=== PATIENT | female | born 1985 | race American Indian/Alaskan Native ===

== ENCOUNTER 2019-01-20 06:36 | Emergency (ER) | payer SELFPAY ==
[2019-01-20 08:04] LABS: Bacteria,Urine 1+ /HPF (Negative); Bilirubin,Urine NEG (Negative); Blood,Urine NEG (Negative); Color,Urine Yellow (Yellow); Mucus,Urine FEW /HPF; Protein,Urine <15 mg/dL mg/dL (Negative); Urobilinogen,Urine < 2.0 mg/dL (<2.0)
[2019-01-20 08:05] LABS: HCG Qualitative,Urine Negative (Negative)
[2019-01-20] MEDS ORDERED: SODIUM CHLORIDE 0.9% 1000 ML 1,000 ML IV ONE (09:21)
[2019-01-20] MEDS ORDERED: ONDANSETRON 4 MG/2 ML INJ IV ONE (09:21)
[2019-01-20] MEDS ORDERED: MORPHINE 4 MG/1 ML INJ IV ONE (09:21)
--- NOTE | 2019-01-20 09:23 | Emergency Department Report ---
ED Abdominal Pain HPI - General Chief Complaint: Abdominal Pain Stated Complaint: ABD PAIN Time Seen by Provider: 01/20/19 08:51 Source: patient Mode of arrival: Ambulatory Limitations: No Limitations - History of Present Illness Initial Comments: 3-year-old -Spanish female patient without significant past medical history complaints of lower right abdominal pain for the past 2 days. She admits to nausea and vomiting and urinary frequency. She denies any fever or chills, dysuria, vaginal discharge, constipation/diarrhea/hematochezia/melena/ hematemesis/coffee ground emesis. She states the pain as radiating up to her right flank area. She does admit to mild vaginal spotting, however states she has not had a normal cycle since her ParaGard was removed earlier this year. - Related Data Previous Rx's Medication Instructions Recorded Last Taken Type Acetaminophen/Codeine [Tylenol 1 tab PO Q6H PRN #10 tab 01/20/19 Unknown Rx /Codeine # 3 tab] Ciprofloxacin HCl [Ciprofloxacin 500 mg PO Q12HR 5 Days #10 tab 01/20/19 Unknown Rx TAB] Ibuprofen [Motrin 800 MG tab] 800 mg PO Q8HR PRN #21 tablet 01/20/19 Unknown Rx Promethazine HCl [Promethazine TAB] 12.5 mg PO Q6H PRN #15 tab 01/20/19 Unknown Rx Allergies Allergy/AdvReac Type Severity Reaction Status Date / Time No Known Allergies Allergy Unverified 01/20/19 06:45 ED Review of Systems ROS: Stated complaint: ABD PAIN Other details as noted in HPI ED Past Medical Hx - Past Medical History Previous Medical History?: No - Surgical History Past Surgical History?: No - Social History Smoking Status: Former Smoker Substance Use Type: Alcohol, Marijuana - Medications Home Medications: Home Medications Medication Instructions Recorded Confirmed Last Taken Type Acetaminophen/Codeine [Tylenol 1 tab PO Q6H PRN #10 tab 01/20/19 Unknown Rx /Codeine # 3 tab] Ciprofloxacin HCl [Ciprofloxacin 500 mg PO Q12HR 5 Days #10 tab 01/20/19 Unknown Rx TAB] Ibuprofen [Motrin 800 MG tab] 800 mg PO Q8HR PRN #21 tablet 01/20/19 Unknown Rx Promethazine HCl [Promethazine TAB] 12.5 mg PO Q6H PRN #15 tab 01/20/19 Unknown Rx ED Physical Exam - General Limitations: No Limitations General appearance: alert, in no apparent distress - Head Head exam: Present: atraumatic, normocephalic - Eye Eye exam: Present: normal appearance. Absent: scleral icterus - ENT ENT exam: Present: normal exam - Neck Neck exam: Present: full ROM - Respiratory Respiratory exam: Present: normal lung sounds bilaterally. Absent: respiratory distress - Cardiovascular Cardiovascular Exam: Present: regular rate, normal rhythm. Absent: systolic murmur, diastolic murmur, rubs, gallop - GI/Abdominal GI/Abdominal exam: Present: soft, tenderness, normal bowel sounds. Absent: distended, guarding, rebound - Extremities Exam Extremities exam: Present: full ROM. Absent: pedal edema - Back Exam Back exam: Present: CVA tenderness (R). Absent: CVA tenderness (L) - Neurological Exam Neurological exam: Present: alert, oriented X3 - Psychiatric Psychiatric exam: Present: normal affect, normal mood - Skin Skin exam: Present: warm, dry, intact, normal color. Absent: rash ED Course Vital Signs 01/20/19 01/20/19 06:43 10:44 Temperature 97.7 F Pulse Rate 49 L 62 Respiratory 12 16 Rate Blood Pressure 190/96 Blood Pressure 140/85 [Left] O2 Sat by Pulse 100 100 Oximetry ED Medical Decision Making - Lab Data Result diagrams: 01/20/19 09:47 01/20/19 09:47 Lab Results 01/20/19 01/20/19 01/20/19 Range/Units 07:37 09:47 09:47 WBC 4.3 L (4.5-11.0) K/mm3 RBC 4.87 (3.65-5.03) M/mm3 Hgb 13.4 (10.1-14.3) gm/dl Hct 41.5 (30.3-42.9) % MCV 85 (79-97) fl MCH 28 (28-32) pg MCHC 32 (30-34) % RDW 16.2 H (13.2-15.2) % Plt Count 184 (140-440) K/mm3 Sodium 139 (137-145) mmol/L Potassium 3.7 (3.6-5.0) mmol/L Chloride 106.7 (98-107) mmol/L Carbon Dioxide 19 L (22-30) mmol/L Anion Gap 17 mmol/L BUN 8 (7-17) mg/dL Creatinine 0.8 (0.7-1.2) mg/dL Estimated GFR > 60 ml/min BUN/Creatinine Ratio 10 % Glucose 87 (65-100) mg/dL Calcium 9.7 (8.4-10.2) mg/dL Total Bilirubin 0.50 (0.1-1.2) mg/dL Direct Bilirubin < 0.2 (0-0.2) mg/dL Indirect Bilirubin 0.3 mg/dL AST 32 (5-40) units/L ALT 23 (7-56) units/L Alkaline Phosphatase 78 (35-129) units/L Total Protein 7.9 (6.3-8.2) g/dL Albumin 4.6 (3.9-5) g/dL Albumin/Globulin Ratio 1.4 % Lipase (13-60) units/L Urine Color Yellow (Yellow) Urine Turbidity Clear (Clear) Urine pH 5.0 (5.0-7.0) Ur Specific [place] 1.021 (1.003-1.030) Urine Protein <15 mg/dl (Negative) mg/dL Urine Glucose (UA) Neg (Negative) mg/dL Urine Ketones Tr (Negative) mg/dL Urine Blood Neg (Negative) Urine Nitrite Neg (Negative) Urine Bilirubin Neg (Negative) Urine Urobilinogen < 2.0 (<2.0) mg/dL Ur Leukocyte Esterase Sm (Negative) Urine WBC (Auto) 9.0 H (0.0-6.0) /HPF Urine RBC (Auto) 4.0 (0.0-6.0) /HPF U Epithel Cells (Auto) 3.0 (0-13.0) /HPF Urine Bacteria (Auto) 1+ (Negative) /HPF Urine Mucus Few /HPF Urine HCG, Qual Negative (Negative) 01/20/19 Range/Units 09:47 WBC (4.5-11.0) K/mm3 RBC (3.65-5.03) M/mm3 Hgb (10.1-14.3) gm/dl Hct (30.3-42.9) % MCV (79-97) fl MCH (28-32) pg MCHC (30-34) % RDW (13.2-15.2) % Plt Count (140-440) K/mm3 Sodium (137-145) mmol/L Potassium (3.6-5.0) mmol/L Chloride (98-107) mmol/L Carbon Dioxide (22-30) mmol/L Anion Gap mmol/L BUN (7-17) mg/dL Creatinine (0.7-1.2) mg/dL Estimated GFR ml/min BUN/Creatinine Ratio % Glucose (65-100) mg/dL Calcium (8.4-10.2) mg/dL Total Bilirubin (0.1-1.2) mg/dL Direct Bilirubin (0-0.2) mg/dL Indirect Bilirubin mg/dL AST (5-40) units/L ALT (7-56) units/L Alkaline Phosphatase (35-129) units/L Total Protein (6.3-8.2) g/dL Albumin (3.9-5) g/dL Albumin/Globulin Ratio % Lipase 35 (13-60) units/L Urine Color (Yellow) Urine Turbidity (Clear) Urine pH (5.0-7.0) Ur Specific [place] (1.003-1.030) Urine Protein (Negative) mg/dL Urine Glucose (UA) (Negative) mg/dL Urine Ketones (Negative) mg/dL Urine Blood (Negative) Urine Nitrite (Negative) Urine Bilirubin (Negative) Urine Urobilinogen (<2.0) mg/dL Ur Leukocyte Esterase (Negative) Urine WBC (Auto) (0.0-6.0) /HPF Urine RBC (Auto) (0.0-6.0) /HPF U Epithel Cells (Auto) (0-13.0) /HPF Urine Bacteria (Auto) (Negative) /HPF Urine Mucus /HPF Urine HCG, Qual (Negative) - Radiology Data Radiology results: report reviewed CT ABDOMEN AND PELVIS WITH CONTRAST HISTORY: Right lower quadrant pain and right flank pain for 2 days COMPARISON: None. TECHNIQUE: Axial CT images were obtained through the abdomen and pelvis after 100 cc of Omnipaque 300 intravenously. Sagittal and coronal reformatted images. All CT scans at this location are performed using CT dose reduction for ALARA by means of automated exposure control. FINDINGS: CT ABDOMEN: Lung Bases: Clear. Liver: No significant abnormality. Biliary: No significant abnormality. Spleen: No significant abnormality. Unenlarged. Pancreas: No significant abnormality. Adrenals: No significant abnormality. Kidneys: No significant abnormality. Lymphatics: No lymphadenopathy. Vasculature: No significant abnormality. Bowel/Peritoneum: No significant abnormality. No free air. No free fluid. Normal appendix. CT PELVIS: : The uterus is anteverted. No uterine fibroid disease. The endometrial canal is markedly thickened measuring up to 3.7 cm. There is a relatively linear metallic density in the lower endometrial canal measuring 1-2 cm which is of uncertain significance. Please correlate with the patient's procedural history. This may represent an Essure device. There are bilateral ovarian cysts. A left ovarian cyst measures 2.2 cm. There are multiple right ovarian cysts with the largest measuring 3.8 cm Osseous Structures: No significant abnormality. Additional Findings: None IMPRESSION: Abnormal endometrium as outlined above. It is unclear if this represents diffuse endometrial thickening or large amount of fluid in the endometrial canal. There is an abnor mal metallic density in the lower endometrial canal which may represent a foreign body. Please corre late with the patient's clinical history. Bilateral ovarian cysts, right greater than left - Medical Decision Making Patient presents for right lower abdominal pain radiating to the right flank for the past 2 days. Vitals are WNL. WBCs are normal. CT abdomen with contrast shows ovarian cysts and a linear metallic density in the uteruspatient states when she had her ParaGard removed earlier this year the device broke off and she was supposed to follow up for surgery and has not. UA shows infection. Differential diagnosis includes complicated UTI, and from ovarian cysts, and pain from ParaGard device. Pain is controlled. Vitals remain stable. We'll treat for complicated UTI and recommend CASH REGISTER MECHANIC follow-up. Discussed strict return precautions in great detail with patient who states understanding. Critical care attestation.: If time is entered above; I have spent that time in minutes in the direct care of this critically ill patient, excluding procedure time. ED Disposition Clinical Impression: Complicated UTI (urinary tract infection) Disposition: DC-01 TO HOME OR SELFCARE Is pt being admited?: No Condition: Stable Instructions: Acute Pyelonephritis (ED) Additional Instructions: Please follow-up with your CASH REGISTER MECHANIC within the next 2-3 days. Prescriptions: Ciprofloxacin HCl [Ciprofloxacin TAB] 500 mg PO Q12HR 5 Days #10 tab Ibuprofen [Motrin 800 MG tab] 800 mg PO Q8HR PRN #21 tablet PRN Reason: Pain , Severe (7-10) Promethazine HCl [Promethazine TAB] 12.5 mg PO Q6H PRN #15 tab PRN Reason: Nausea Acetaminophen/Codeine [Tylenol /Codeine # 3 tab] 1 tab PO Q6H PRN #10 tab PRN Reason: Pain , Severe (7-10) Referrals: PRIMARY CARE,MD [Primary Care Provider] - 3-5 Days
[2019-01-20 10:22] LABS: Hematocrit 41.5 % (30.3-42.9); Hemoglobin 13.4 gm/dl (10.1-14.3); Mean Corpuscular HGB Conc 32 % (30-34); Mean Corpuscular Volume 85 fl (79-97); Platelet Count 184 K/mm3 (140-440); Red Blood Count 4.87 M/mm3 (3.65-5.03); Red Cell Distribution Width 16.2 % (13.2-15.2)
[2019-01-20 10:33] LABS: Alanine Aminotransferase 23 units/L (7-56); Albumin 4.6 g/dL (3.9-5); BUN/Creatinine Ratio 10; Blood Urea Nitrogen 8 mg/dL (7-17); Calcium 9.7 mg/dL (8.4-10.2); Hemolysis Index 6
[2019-01-20 10:34] LABS: Bilirubin,Direct < 0.2 mg/dL (0-0.2)
--- NOTE | 2019-01-20 12:42 | Cat Scan Report ---
CT ABDOMEN AND PELVIS WITH CONTRAST HISTORY: Right lower quadrant pain and right flank pain for 2 days COMPARISON: None. TECHNIQUE: Axial CT images were obtained through the abdomen and pelvis after 100 cc of Omnipaque 300 intravenously. Sagittal and coronal reformatted images. All CT scans at this location are performed using CT dose reduction for ALARA by means of automated exposure control. FINDINGS: CT ABDOMEN: Lung Bases: Clear. Liver: No significant abnormality. Biliary: No significant abnormality. Spleen: No significant abnormality. Unenlarged. Pancreas: No significant abnormality. Adrenals: No significant abnormality. Kidneys: No significant abnormality. Lymphatics: No lymphadenopathy. Vasculature: No significant abnormality. Bowel/Peritoneum: No significant abnormality. No free air. No free fluid. Normal appendix. CT PELVIS: : The uterus is anteverted. No uterine fibroid disease. The endometrial canal is markedly thickened measuring up to 3.7 cm. There is a relatively linear metallic density in the lower endometrial canal measuring 1-2 cm which is of uncertain significance. Please correlate with the patient's procedural history. This may represent an Essure device. There are bilateral ovarian cysts. A left ovarian cyst measures 2.2 cm. There are multiple right ovarian cysts with the largest measuring 3.8 cm Osseous Structures: No significant abnormality. Additional Findings: None IMPRESSION: Abnormal endometrium as outlined above. It is unclear if this represents diffuse endometrial thickeni ng or large amount of fluid in the endometrial canal. There is an abnormal metallic density in the lo wer endometrial canal which may represent a foreign body. Please correlate with the patient's clinica l history. Bilateral ovarian cysts, right greater than left Signer Name: Jeremy Allan Jr, MD Signed: 01/20/2019 12:38 PM Workstation Name: [id number]
[2019-01-20] MEDS ORDERED: ONDANSETRON 4 MG ODT TAB PO ONE (12:50)
[2019-01-20] MEDS ORDERED: KETOROLAC 30 MG/1 ML INJ IV ONE (12:50)
[2019-01-20] MEDS ORDERED: cefTRIAXone/NS 1 GM/50 ML 1 GM/50 ML BAG IV SCH (13:00)
[2019-01-20 14:21] VITALS: BP 145/90
== END 2019-01-20 14:29 | disposition home or self-care (01) ==
LOC: ED 06:36
DX: N39.0 Urinary tract infection, site not specified (principal); F12.10 Cannabis abuse, uncomplicated; Z87.891 Personal history of nicotine dependence
CPT/HCPCS: 36415; 74177; 80048; 80076; 81001; 81025; 83690; 85027; 87086; 96361; 96365; 96375; 99284; J0696; J1885; J2270; J2405; J7030; Q9967; Q0162

== ENCOUNTER 2019-02-23 10:27 | Observation (INO) | payer SELFPAY ==
[2019-02-23 11:14] LABS: Basophils % (Auto) 0.7 % (0.0-1.8); Eosinophils % (Auto) 0.7 % (0.0-4.3); Hematocrit 36.7 % (30.3-42.9); Hemoglobin 12.1 gm/dl (10.1-14.3); Lymphocytes # (Auto) 1.5 K/mm3 (1.2-5.4); Lymphocytes % (Auto) 21.4 % (13.4-35.0); Mean Corpuscular HGB Conc 33 % (30-34); Mean Corpuscular Volume 85 fl (79-97); Monocytes # (Auto) 0.6 K/mm3 (0.0-0.8); Monocytes % (Auto) 8.2 % (0.0-7.3); Platelet Count 195 K/mm3 (140-440); Red Blood Count 4.34 M/mm3 (3.65-5.03); Red Cell Distribution Width 15.6 % (13.2-15.2)
[2019-02-23] MEDS ORDERED: ONDANSETRON 4 MG/2 ML INJ IV ONE (11:24)
[2019-02-23] MEDS ORDERED: MORPHINE 4 MG/1 ML INJ IV ONE (11:24)
[2019-02-23] MEDS ORDERED: SODIUM CHLORIDE 0.9% 1000 ML 1,000 ML IV ONE (11:24)
[2019-02-23] MEDS ORDERED: KETOROLAC 30 MG/1 ML INJ IV ONE (11:24)
[2019-02-23] MEDS ORDERED: MORPHINE 2 MG/1 ML INJ ONE (11:34)
[2019-02-23] MEDS ORDERED: ONDANSETRON 4 MG/2 ML INJ IV PRN (14:10)
[2019-02-23] MEDS ORDERED: fentaNYL 100 MCG/2 ML INJ IV PRN (14:10)
--- NOTE | 2019-02-23 14:11 | Anesthesia Day of Surgery ---
Anesthesia Day of Surgery - Day of Surgery Patient Examined: Yes Patient H&P Reviewed: Yes Patient is NPO: Yes
--- NOTE | 2019-02-23 14:11 | Ultrasound Report ---
ULTRASOUND PELVIS COMPLETE ULTRASOUND TRANSVAGINAL INDICATION / CLINICAL INFORMATION: pelvic pain hematometria. TECHNIQUE: Transabdominal and Transvaginal. Duplex Color Doppler used: Yes. COMPARISON: CT abdomen pelvis with contrast dated 01/20/2019 FINDINGS: UTERUS: The uterus is anteverted. The uterus is enlarged measuring 13.2 x 7.7 x 7.2 cm. No uterine fi broids are identified. The endometrial stripe is markedly thickened and complex measuring up to 3 cm on transvaginal imaging. The endometrium in the uterine fundus region demonstrates normal echotexture also it is markedly thickened. The lower endometrium is particularly complex with multiple fine inte rnal septa. The endometrium appears avascular on Doppler interrogation. The etiology of this is uncle ar. RIGHT ADNEXA: The right ovary measures 3.9 x 1.4 x 1.9 cm. There is a large complex cyst containing d ebris measuring 6.4 cm adjacent to the right ovary. This may represent an exophytic hemorrhagic cyst. LEFT ADNEXA: The left ovary is unremarkable measuring 3.6 x 1.7 x 2.9 cm. URINARY BLADDER: No significant abnormality. FREE FLUID: None. ADDITIONAL FINDINGS: None. IMPRESSION: Abnormal endometrium of uncertain etiology. Uterine synechia Consultation with WIRELESS ARCHITECT is recommended . 6.4 cm complex right adnexal cyst. Signer Name: Jeremy Allan Jr, MD Signed: 02/23/2019 2:07 PM Workstation Name: [id number]
--- NOTE | 2019-02-23 14:12 | Ultrasound Report ---
ULTRASOUND PELVIS COMPLETE ULTRASOUND TRANSVAGINAL INDICATION / CLINICAL INFORMATION: pelvic pain hematometria. TECHNIQUE: Transabdominal and Transvaginal. Duplex Color Doppler used: Yes. COMPARISON: CT abdomen pelvis with contrast dated 01/20/2019 FINDINGS: UTERUS: The uterus is anteverted. The uterus is enlarged measuring 13.2 x 7.7 x 7.2 cm. No uterine fi broids are identified. The endometrial stripe is markedly thickened and complex measuring up to 3 cm on transvaginal imaging. The endometrium in the uterine fundus region demonstrates normal echotexture also it is markedly thickened. The lower endometrium is particularly complex with multiple fine inte rnal septa. The endometrium appears avascular on Doppler interrogation. The etiology of this is uncle ar. RIGHT ADNEXA: The right ovary measures 3.9 x 1.4 x 1.9 cm. There is a large complex cyst containing d ebris measuring 6.4 cm adjacent to the right ovary. This may represent an exophytic hemorrhagic cyst. LEFT ADNEXA: The left ovary is unremarkable measuring 3.6 x 1.7 x 2.9 cm. URINARY BLADDER: No significant abnormality. FREE FLUID: None. ADDITIONAL FINDINGS: None. IMPRESSION: Abnormal endometrium of uncertain etiology. Uterine synechia Consultation with WORLD TRAVEL COUNSELOR is recommended . 6.4 cm complex right adnexal cyst. Signer Name: Jeremy Allan Jr, MD Signed: 02/23/2019 2:07 PM Workstation Name: [id number]
--- NOTE | 2019-02-23 14:17 | Anesthesia Consultation ---
Anesthesia Consult and Med Hx Date of service: 02/23/19 - Airway Anesthetic Teeth Evaluation: Good ROM Head & Neck: Adequate Mental/Hyoid Distance: Adequate Mallampati Class: Class I Intubation Access Assessment: Good - Pre-Operative Health Status ASA Pre-Surgery Classification: ASA1, Emergency Proposed Anesthetic Plan: General - Hematic Hx Sickle Cell Disease: No
--- NOTE | 2019-02-23 14:21 | Emergency Department Report ---
ED General Adult HPI - General Chief complaint: Vaginal Bleeding Stated complaint: VAGINAL BLEEDING Time Seen by Provider: 02/23/19 10:44 Source: patient Mode of arrival: Ambulatory Limitations: No Limitations - History of Present Illness Initial comments: Family entire history and physical examination, I am substation manager and escorted by nurse Nathan Cha The patient follows with apparel designer, Dr. Zaragoza. She was diagnosed with a large 7 cm hematometria yesterday in Dr. Zaragoza's office via ultrasound. Apparently, patient had an IUD that was taken out, last year by another apparel designer, and one of the wings of the IUD was reportedly retained within the patient's cervix. Subsequently, she is not really had any significant menstruation for the past 11 months. She's had chronic lower abdominal pain, which got worse yesterday. She then states that she had a large gush of blood this morning, and has used 10 tampons/pads today. She reports that she feels no fevers, positive nausea, no urinary symptoms. There is no chest pain, no shortness of breath, no upper abdominal pain. Symptoms constant, do not radiate anywhere, worse with palpation, edita down, and decreased with rest and pain medication. -: Gradual Location: abdomen Radiation: non-radiation Severity scale (0 -10): 10 Quality: constant Consistency: other Improves with: other Worsens with: other Associated Symptoms: other - Related Data Previous Rx's Medication Instructions Recorded Last Taken Type Acetaminophen/Codeine [Tylenol 1 tab PO Q6H PRN #10 tab 01/20/19 Unknown Rx /Codeine # 3 tab] Ciprofloxacin HCl [Ciprofloxacin 500 mg PO Q12HR 5 Days #10 tab 01/20/19 Unknown Rx TAB] Ibuprofen [Motrin 800 MG tab] 800 mg PO Q8HR PRN #21 tablet 01/20/19 Unknown Rx Promethazine HCl [Promethazine TAB] 12.5 mg PO Q6H PRN #15 tab 01/20/19 Unknown Rx Allergies Allergy/AdvReac Type Severity Reaction Status Date / Time No Known Allergies Allergy Verified 02/23/19 10:27 ED Review of Systems ROS: Stated complaint: VAGINAL BLEEDING Other details as noted in HPI Constitutional: malaise Eyes: denies: eye discharge ENT: denies: congestion Cardiovascular: denies: syncope Gastrointestinal: abdominal pain Genitourinary: abnormal menses Musculoskeletal: denies: myalgia Neurological: weakness Psychiatric: anxiety ED Past Medical Hx - Past Medical History Previous Medical History?: No - Surgical History Past Surgical History?: No - Social History Smoking Status: Current Every Day Smoker Substance Use Type: None - Medications Home Medications: Home Medications Medication Instructions Recorded Confirmed Last Taken Type Acetaminophen/Codeine [Tylenol 1 tab PO Q6H PRN #10 tab 01/20/19 Unknown Rx /Codeine # 3 tab] Ciprofloxacin HCl [Ciprofloxacin 500 mg PO Q12HR 5 Days #10 tab 01/20/19 Unknown Rx TAB] Ibuprofen [Motrin 800 MG tab] 800 mg PO Q8HR PRN #21 tablet 01/20/19 Unknown Rx Promethazine HCl [Promethazine TAB] 12.5 mg PO Q6H PRN #15 tab 01/20/19 Unknown Rx ED Physical Exam - General Limitations: No Limitations General appearance: alert, anxious, in distress - Head Head exam: Present: atraumatic, normocephalic - Eye Eye exam: Present: normal appearance, EOMI. Absent: nystagmus - ENT ENT exam: Present: normal exam, normal orophraynx, mucous membranes moist, normal external ear exam - Neck Neck exam: Present: normal inspection, full ROM. Absent: tenderness, meningismus - Respiratory Respiratory exam: Present: normal lung sounds bilaterally. Absent: respiratory distress - Cardiovascular Cardiovascular Exam: Present: regular rate, normal rhythm, normal heart sounds. Absent: bradycardia, tachycardia, irregular rhythm, systolic murmur, diastolic murmur, rubs, gallop - GI/Abdominal GI/Abdominal exam: Present: soft. Absent: distended, tenderness, guarding, rebound, rigid, pulsatile mass - External exam: Present: normal external exam, bleeding. Absent: lesions, lacerations Speculum exam: Present: other (chaperoned by nurse Nathan Cha). Absent: cervical discharge - Extremities Exam Extremities exam: Present: normal inspection, full ROM, other (2+ pulses noted in the bilateral upper and lower extremities. There is no palpable cord. negative Homans sign. Muscular compartments are soft. The pelvis is stable.). Absent: pedal edema, joint swelling, calf tenderness - Back Exam Back exam: Present: normal inspection, full ROM. Absent: tenderness, CVA tenderness (R), CVA tenderness (L), paraspinal tenderness, vertebral tenderness - Neurological Exam Neurological exam: Present: alert, normal gait, other (there is no facial droop. The tongue is midline. The extraocular movements are intact bilaterally. Speaking in full sentences. Minimal elevation of the base of the tongue. There is 5 out of 5 strength in the bilateral upper and lower extremities, and sensa tion is intact to light touch in the bilateral upper and lower extremities. Appropriate insight.). Absent: motor sensory deficit - Psychiatric Psychiatric exam: Present: anxious - Skin Skin exam: Present: warm, dry, intact, normal color. Absent: rash ED Course Vital Signs 02/23/19 02/23/19 10:34 11:41 Temperature 98.3 F Pulse Rate 71 Respiratory 18 16 Rate Blood Pressure 167/108 O2 Sat by Pulse 100 Oximetry ED Medical Decision Making - Lab Data Result diagrams: 02/23/19 10:43 Vital Signs 02/23/19 02/23/19 10:34 11:41 Temperature 98.3 F Pulse Rate 71 Respiratory 18 16 Rate Blood Pressure 167/108 O2 Sat by Pulse 100 Oximetry Lab Results 02/23/19 02/23/19 02/23/19 Range/Units 10:43 10:43 11:40 WBC 6.8 (4.5-11.0) K/mm3 RBC 4.34 (3.65-5.03) M/mm3 Hgb 12.1 (10.1-14.3) gm/dl Hct 36.7 (30.3-42.9) % MCV 85 (79-97) fl MCH 28 (28-32) pg MCHC 33 (30-34) % RDW 15.6 H (13.2-15.2) % Plt Count 195 (140-440) K/mm3 Lymph % (Auto) 21.4 (13.4-35.0) % [place] % (Auto) 8.2 H (0.0-7.3) % Eos % (Auto) 0.7 (0.0-4.3) % Baso % (Auto) 0.7 (0.0-1.8) % Lymph # 1.5 (1.2-5.4) K/mm3 [place] # 0.6 (0.0-0.8) K/mm3 Eos # 0.0 (0.0-0.4) K/mm3 Baso # 0.0 (0.0-0.1) K/mm3 Seg Neutrophils % 69.0 (40.0-70.0) % Seg Neutrophils # 4.7 (1.8-7.7) K/mm3 HCG, Qual Negative (Negative) Blood Type B POSITIVE Antibody Screen Negative - Radiology Data Radiology results: report reviewed, image reviewed Print Report Referring Physician: SALEEM REAGAN Patient Name: MALACHI SMITH Date of : 1985 Sex: Female Report Date: 2019-02-23 Report Status: Finalized Findings [facility] [address] [place] [address] Ultrasound Report Signed Patient: MALACHI SMITH MR#: [id number] 150 : 1985 Acct:[id number] Age/Sex: 33 / F ADM Date: 02/23/19 Loc: ED Attending Dr: Ordering Physician: SALEEM REAGAN MD Date of Service: 02/23/19 Procedure(s): US transvaginal Accession Number(s): [id number] cc: SALEEM REAGAN MD ULTRASOUND PELVIS COMPLETE ULTRASOUND TRANSVAGINAL INDICATION / CLINICAL INFORMATION: pelvic pain hematometria. TECHNIQUE: Transabdominal and Transvaginal. Duplex Color Doppler used: Yes. COMPARISON: CT abdomen pelvis with contrast dated 01/20/2019 FINDINGS: UTERUS: The uterus is anteverted. The uterus is enlarged measuring 13.2 x 7.7 x 7.2 cm. No uterine fibroids are identified. The endometrial stripe is markedly thickened and complex measuring up to 3 cm on transvaginal imaging. The endometrium in the uterine fundus region demonstrates normal echotexture also it is markedly thickened. The lower endometrium is particularly complex with multiple fine internal septa. The endometrium appears avascular on Doppler interrogation. The etiology of this is unclear. RIGHT ADNEXA: The right ovary measures 3.9 x 1.4 x 1.9 cm. There is a large complex cyst containing debris measuring 6.4 cm adjacent to the right ovary. This may represent an exophytic hemorrhagic cyst. LEFT ADNEXA: The left ovary is unremarkable measuring 3.6 x 1.7 x 2.9 cm. URINARY BLADDER: No significant abnormality. FREE FLUID: None. ADDITIONAL FINDINGS: None. IMPRESSION: Abnormal endometrium of uncertain etiology. Uterine synechia Consultation with RETAIL INTERIOR DESIGNER is recommended. 6.4 cm complex right adnexal cyst. Signer Name: Jeremy Allan Jr, MD Signed: 02/23/2019 2:07 PM Workstation Name: [id number] Transcribed By: RUDI Dictated By: JEREMY ALLAN JR, MD Electronically Authenticated By: JEREMY ALLAN JR, MD Signed Date/Time: 02/23/19 1402 DD/ [id number] - Medical Decision Making Differential diagnosis, including but not limited to: hematometria Assessment and plan: 33-year-old female who presents with a large gush of blood from the cervix and vagina, likely secondary to hematometria, which is likely secondary to retained foreign body/wing from intrauterine device. She is afebrile with reassuring vital signs. Ultrasound interpretation is reviewed and appreciated. Her apparel designer, Dr. Zaragoza, evaluated the patient personally in the emergency room. Patient to go to the operating room for DNC, and further gynecologic surgical management. Critical care attestation.: If time is entered above; I have spent that time in minutes in the direct care of this critically ill patient, excluding procedure time. ED Disposition Clinical Impression: Hematometra Disposition: -09 OP ADMIT IP TO THIS HOSP Is pt being admited?: Yes Condition: Stable Referrals: PRIMARY CARE, [Primary Care Provider] - 3-5 Days
[2019-02-23] MEDS ORDERED: LACTATED RINGERS 1,000 ML ONE (14:23)
[2019-02-23] MEDS ORDERED: fentaNYL 100 MCG/2 ML INJ ONE (14:30)
[2019-02-23] MEDS ORDERED: PROPOFOL 200 MG/20 ML VIAL IV ONE (14:30)
[2019-02-23] MEDS ORDERED: LIDOCAINE MPF (2%) 20 MG/1 ML VIAL 5 ML ONE (14:31)
[2019-02-23] MEDS ORDERED: dexAMETHasone 20 MG/5 ML VIAL ONE (14:57)
[2019-02-23] MEDS ORDERED: ONDANSETRON 4 MG/2 ML INJ ONE (14:57)
[2019-02-23] MEDS ORDERED: miSOPROStol 200 MCG TAB ONE (14:57)
[2019-02-23] MEDS ORDERED: LACTATED RINGERS 1,000 ML IV SCH (15:00)
[2019-02-23] MEDS ORDERED: miSOPROStol 200 MCG TAB PR ONE (15:11)
[2019-02-23] MEDS ORDERED: SODIUM CHLORIDE 0.9% IRR 1,000 ML BOTTLE IR ONE (15:11)
[2019-02-23] MEDS ORDERED: SODIUM CHLORIDE 0.9% IRRIG SOLN 3000 ML IR ONE (15:12)
[2019-02-23] MEDS ORDERED: KETOROLAC 30 MG/1 ML INJ ONE (15:17)
--- NOTE | 2019-02-23 15:26 | Operative Report ---
Operative Report Operative Report: DATE: 02/23/19 REOPERATIVE DIAGNOSES: 1.Hematometria 2. Hx of missing piece of IUD 3. Vaginal bleeding POSTOPERATIVE DIAGNOSES: 1-3 GREGORIO PROCEDURE PERFORMED: 1. Dilatation and curettage. 2. Hysteroscopy. GROSS FINDINGS: Uterus was anteverted, greatly enlarged. The cervix is patulous and nulliparous without dark area on the 0300 position. Adnexal examination was negative for masses. PROCEDURE: The patient was taken to the operating room where she was properly prepped and draped in sterile manner under general anesthesia. After bimanual examination, the cervix was exposed with a weighted vaginal speculum and the anterior lip of the cervix grasped with a vulsellum tenaculum. The uterus was sounded to a depth of 7.5 cm. The endocervical canal was then progressively dilated with Hanks and Hegar dilators to a #10 Hegar. The uterus was suctioned all hematometria from uterine cavity. The [facility] hysteroscope was then introduced into the uterine cavity using sterile saline solution as a distending media and with attached video camera. The endometrial cavity was distended with fluids and the cavity visualized. No foreign body located. The coronal areas were visualized bilaterally with corresponding tubal ostia. A medium amount of proliferative appearing endometrium was noted. There were no direct intraluminal lesions seen. The patient tolerated the procedure well. A large sharp curet was then used to confirm all tissue and blood removed from c avity. . The instrument was removed from the vaginal vault. The patient was sent to recovery area in satisfactory postoperative condition.
[2019-02-23] MEDS ORDERED: MEPERIDINE 25 MG/1 ML INJ ONE (15:37)
[2019-02-23] MEDS ORDERED: MEPERIDINE 25 MG/1 ML INJ IV PRN (15:42)
[2019-02-23 16:04] VITALS: BP 140/74
== END 2019-02-23 23:33 | disposition home or self-care (01) ==
LOC: ED 10:27 → OB 14:23 → 3A 23:09
PROVIDERS: ADMIT Obstetrics & Gynecology; ATTEND Obstetrics & Gynecology
DX: N85.7 Hematometra (principal); R53.81 Other malaise; R53.1 Weakness; F41.9 Anxiety disorder, unspecified; F17.200 Nicotine dependence, unspecified, uncomplicated
CPT/HCPCS: 36415; 58558; 76830; 76856; 84703; 85025; 86850; 86900; 86901; 88305; 96374; 96375; 99284; A4217; G0378; J1100; J1885; J2175; J2270; J2405; J2704; J3010; J7030; J7120

== ENCOUNTER 2019-05-23 17:36 | Emergency (ER) | payer SELFPAY ==
--- NOTE | 2019-05-23 18:24 | Event Note ---
ED Screening Note Date of service: 05/23/19 Time: 18:23 ED Screening Note: 33 y o female presents with low abd pain x last night with vomkitting and diarheaa This initial assessment/diagnostic orders/clinical plan/treatment(s) is/are subject to change based on patients health status, clinical progression and re- assessment by fellow clinical providers in the ED. Further treatment and workup at subsequent clinical providers discretion. Patient/guardian urged not to elope from the ED as their condition may be serious if not clinically assessed and managed. Initial orders include: ua,labs acc eval
[2019-05-23 19:23] LABS: Basophils % (Auto) 1.1 % (0.0-1.8); Eosinophils % (Auto) 1.1 % (0.0-4.3); Hematocrit 32.8 % (30.3-42.9); Hemoglobin 10.3 gm/dl (10.1-14.3); Lymphocytes # (Auto) 1.4 K/mm3 (1.2-5.4); Mean Corpuscular HGB Conc 31 % (30-34); Mean Corpuscular Volume 75 fl (79-97); Monocytes # (Auto) 0.3 K/mm3 (0.0-0.8); Monocytes % (Auto) 9.6 % (0.0-7.3); Platelet Count 287 K/mm3 (140-440); Red Blood Count 4.39 M/mm3 (3.65-5.03); Red Cell Distribution Width 16.9 % (13.2-15.2)
[2019-05-23 19:36] LABS: Bacteria,Urine 2+ /HPF (Negative); Bilirubin,Urine NEG (Negative); Blood,Urine SM (Negative); Color,Urine Yellow (Yellow); Mucus,Urine 1+ /HPF; Urobilinogen,Urine < 2.0 mg/dL (<2.0)
[2019-05-23 19:56] LABS: Alanine Aminotransferase 10 units/L (7-56); Albumin 4.1 g/dL (3.9-5); BUN/Creatinine Ratio 6; Blood Urea Nitrogen 5 mg/dL (7-17); Calcium 9.6 mg/dL (8.4-10.2); Hemolysis Index 0
[2019-05-23] MEDS ORDERED: LIDOCAINE-MPF (1%) 10 MG/1 ML VIAL 5 ML INFILTRATI ONE (21:44)
[2019-05-23] MEDS ORDERED: FAMOTIDINE 20 MG TAB PO ONE (21:44)
[2019-05-23] MEDS ORDERED: ONDANSETRON 4 MG ODT TAB PO ONE (21:44)
[2019-05-23] MEDS ORDERED: KETOROLAC 30 MG/1 ML INJ IM ONE (21:44)
--- NOTE | 2019-05-23 22:40 | Emergency Department Report ---
ED Abdominal Pain HPI - General Chief Complaint: Abdominal Pain Stated Complaint: N/V , STOMACH PAIN Source: patient Mode of arrival: Ambulatory Limitations: No Limitations - History of Present Illness Initial Comments: Patient is a A0 33-year-old -Arm[place]ian female with no past medical history who presents to the ED with a complaint of acute onset persistent suprapubic pain with nausea, vomiting and diarrhea for the last 2 days. Patient states that the symptoms have been persistent especially suprapubic pain. Patient also states that the pain in the suprapubic area radiates to the right flank. Patient denies dizziness, fever, chills, shortness of breath, cough, sore throat, hematuria, vaginal bleeding or vaginal discharge. MD Complaint: abdominal pain, other (nausea, vomiting and diarrhea) -: Sudden, days(s) (2) Location: suprapubic Radiation: suprapubic Migration to: no migration Severity: severe Severity scale (0 -10): 7 Quality: cramping, sharp Consistency: constant Improves With: nothing Worsens With: nothing Context: possible food poisoning Associated Symptoms: denies other symptoms, nausea, vomiting, diarrhea, anorexia . denies: chills, constipation, dysuria, hematemesis, hematochezia, melena, syncope, other - Related Data LMP Date: 05/14/19 Previous Rx's Medication Instructions Recorded Last Taken Type Acetaminophen/Codeine [Tylenol 1 tab PO Q6H PRN #10 tab 01/20/19 Unknown Rx /Codeine # 3 tab] Ciprofloxacin HCl [Ciprofloxacin 500 mg PO Q12HR 5 Days #10 tab 01/20/19 Unknown Rx TAB] Ibuprofen [Motrin 800 MG tab] 800 mg PO Q8HR PRN #21 tablet 01/20/19 Unknown Rx Promethazine HCl [Promethazine TAB] 12.5 mg PO Q6H PRN #15 tab 01/20/19 Unknown Rx Ibuprofen [Motrin] 600 mg PO Q8H PRN #30 tablet 02/23/19 Unknown Rx Ibuprofen [Motrin] 600 mg PO Q8H PRN #30 tablet 02/23/19 Unknown Rx oxyCODONE /ACETAMINOPHEN [Percocet 1 tab PO Q6HR PRN #20 tablet 02/23/19 Unknown Rx 5/325] oxyCODONE /ACETAMINOPHEN [Percocet 1 tab PO Q6HR PRN #30 tablet 02/23/19 Unknown Rx 5/325] Dicyclomine [Bentyl] 20 mg PO Q6H PRN #24 tablet 05/23/19 Unknown Rx Famotidine [Pepcid] 20 mg PO Q12H #60 tablet 05/23/19 Unknown Rx Ondansetron [Zofran Odt] 4 mg PO Q6HR PRN #20 tab.rapdis 05/23/19 Unknown Rx cephALEXin [Keflex] 500 mg PO Q6HR #40 capsule 05/23/19 Unknown Rx Allergies Allergy/AdvReac Type Severity Reaction Status Date / Time No Known Allergies Allergy Verified 02/23/19 10:27 ED Review of Systems ROS: Stated complaint: N/V , STOMACH PAIN Other details as noted in HPI Constitutional: denies: chills, fever Eyes: denies: eye pain, eye discharge, vision change ENT: denies: ear pain, throat pain Respiratory: denies: cough, shortness of breath, wheezing Cardiovascular: denies: chest pain, palpitations Endocrine: no symptoms reported Gastrointestinal: abdominal pain, nausea, vomiting, diarrhea Genitourinary: denies: urgency, dysuria, discharge Musculoskeletal: back pain, arthralgia, myalgia. denies: joint swelling Skin: denies: rash, lesions Neurological: denies: headache, weakness, paresthesias Psychiatric: denies: anxiety, depression Hematological/Lymphatic: denies: easy bleeding, easy bruising ED Past Medical Hx - Past Medical History Previous Medical History?: No Hx Sickle Cell Disease: No - Surgical History Past Surgical History?: No - Social History Smoking Status: Current Every Day Smoker Substance Use Type: None - Medications Home Medications: Home Medications Medication Instructions Recorded Confirmed Last Taken Type Acetaminophen/Codeine [Tylenol 1 tab PO Q6H PRN #10 tab 01/20/19 Unknown Rx /Codeine # 3 tab] Ciprofloxacin HCl [Ciprofloxacin 500 mg PO Q12HR 5 Days #10 tab 01/20/19 Unknown Rx TAB] Ibuprofen [Motrin 800 MG tab] 800 mg PO Q8HR PRN #21 tablet 01/20/19 Unknown Rx Promethazine HCl [Promethazine TAB] 12.5 mg PO Q6H PRN #15 tab 01/20/19 Unknown Rx Ibuprofen [Motrin] 600 mg PO Q8H PRN #30 tablet 02/23/19 Unknown Rx Ibuprofen [Motrin] 600 mg PO Q8H PRN #30 tablet 02/23/19 Unknown Rx oxyCODONE /ACETAMINOPHEN [Percocet 1 tab PO Q6HR PRN #20 tablet 02/23/19 Unknown Rx 5/325] oxyCODONE /ACETAMINOPHEN [Percocet 1 tab PO Q6HR PRN #30 tablet 02/23/19 Unknown Rx 5/325] Dicyclomine [Bentyl] 20 mg PO Q6H PRN #24 tablet 05/23/19 Unknown Rx Famotidine [Pepcid] 20 mg PO Q12H #60 tablet 05/23/19 Unknown Rx Ondansetron [Zofran Odt] 4 mg PO Q6HR PRN #20 tab.rapdis 05/23/19 Unknown Rx cephALEXin [Keflex] 500 mg PO Q6HR #40 capsule 05/23/19 Unknown Rx ED Physical Exam - General Limitations: No Limitations General appearance: alert, in no apparent distress - Head Head exam: Present: atraumatic, normocephalic, normal inspection - Eye Eye exam: Present: normal appearance, PERRL, EOMI Pupils: Present: normal accommodation - ENT ENT exam: Present: normal exam, normal orophraynx, mucous membranes moist, TM's normal bilaterally, normal external ear exam - Neck Neck exam: Present: normal inspection, full ROM - Respiratory Respiratory exam: Present: normal lung sounds bilaterally. Absent: respiratory distress, wheezes, rales, rhonchi, chest wall tenderness, decreased breath sounds, prolonged expiratory - Cardiovascular Cardiovascular Exam: Present: regular rate, normal rhythm, normal heart sounds. Absent: systolic murmur, diastolic murmur, rubs, gallop - GI/Abdominal GI/Abdominal exam: Present: soft, normal bowel sounds. Absent: tenderness, guarding, hyperactive bowel sounds, hypoactive bowel sounds, organomegaly - Extremities Exam Extremities exam: Present: normal inspection, full ROM, normal capillary refill - Back Exam Back exam: Present: normal inspection, full ROM. Absent: tenderness, CVA tenderness (R), CVA tenderness (L), muscle spasm, paraspinal tenderness - Neurological Exam Neurological exam: Present: alert, oriented X3, CN II-XII intact, normal gait, reflexes normal - Psychiatric Psychiatric exam: Present: normal affect, normal mood - Skin Skin exam: Present: warm, dry, intact, normal color. Absent: rash ED Course Vital Signs 05/23/19 18:25 Temperature 98.1 F Pulse Rate 68 Respiratory 18 Rate Blood Pressure 142/86 O2 Sat by Pulse 49 L Oximetry ED Medical Decision Making - Lab Data Result diagrams: 05/23/19 19:10 05/23/19 19:10 - Medical Decision Making This is a 33-year-old female who presented to the ED with acute onset persistent suprapubic pain with nausea, vomiting and diarrhea as well as right flank pain. The initial vital signs was documented in area with a pulse ox of 49% but that this was recorded in error and corrected upon reevaluation. In the ED, patient is alert and oriented x3 and is not in distress with normal vital signs. The lab test results were reviewed and are all nonactionable except for urinalysis that showed significant urinary tract infection with positive nitrite levels as well as large leukocyte esterase and > 81 WBCs. Patient was treated for nausea and vomiting also given antacids and Rocephin 1 g intramuscular injection. On reevaluation, patient's nausea and vomiting resolved in the ED and patient was discharged home on medication including antibiotics. Patient was advised to follow-up with her primary care physician in 7 to 10 days for reevaluation or return to the ED immediately if symptoms get worse. - Differential Diagnosis UTI; Gastroenteritis; GERD; Colitis; PID; Kidney stones Critical care attestation.: If time is entered above; I have spent that time in minutes in the direct care of this critically ill patient, excluding procedure time. ED Disposition Clinical Impression: Abdominal pain, bilateral lower quadrant, Nausea, vomiting and diarrhea, Acute urinary tract infection Disposition: DC-01 TO HOME OR SELFCARE Is pt being admited?: No Does the pt Need Aspirin: No Condition: Stable Instructions: Urinary Tract Infection in Women (ED), Acute Nausea and Vomiting (ED), Abdominal Pain (ED) Additional Instructions: All your lab test results are unremarkable except for urinalysis that showed significant urinary tract infection. This in itself could cause the symptoms that you are experiencing at this time however you also have a viral syndrome that is most likely driving the symptoms as well. Therefore take medications with food, drink plenty of fluids and follow-up with your primary care physician in 7 to 10 days for reevaluation or return to the ED immediately if symptoms get worse. Prescriptions: Dicyclomine [Bentyl] 20 mg PO Q6H PRN #24 tablet PRN Reason: Pain , Severe (7-10) cephALEXin [Keflex] 500 mg PO Q6HR #40 capsule Famotidine [Pepcid] 20 mg PO Q12H #60 tablet Ondansetron [Zofran Odt] 4 mg PO Q6HR PRN #20 tab.rapdis PRN Reason: Nausea Referrals: PRIMARY CARE,MD [Primary Care Provider] - 3-5 Days Forms: Work/School Release Form(ED) Time of Disposition: 22:50 Print Language: [id number]
[2019-05-24 01:55] VITALS: BP 161/102
== END 2019-05-23 23:10 | disposition home or self-care (01) ==
LOC: ED 17:36
DX: N39.0 Urinary tract infection, site not specified (principal); R10.32 Left lower quadrant pain; R19.7 Diarrhea, unspecified; R11.2 Nausea with vomiting, unspecified; F17.200 Nicotine dependence, unspecified, uncomplicated; Z79.899 Other long term (current) drug therapy
CPT/HCPCS: 36415; 80053; 81001; 83690; 84703; 85025; 87076; 87086; 87186; 96372; 99283; J0696; J1885; Q0162